=== PATIENT | female | born 1930 | race Caucasian/White ===

== ENCOUNTER → 2016-07-10 | Outpatient (CLI) | payer MEDICARE ==
[~2016-07-10] MED LIST: AMBIEN5 MG PO; ASPIRIN E.C.325 MG PO; ATOXIMETIN-B1 CAP PO; CORDROL20 MG PO; FLEXERIL10 MG PO; PERCOCET 325 MG1 TA2 PO; PRAVACHOL40 MG PO; PREDNISONE5 MG PO; QUINAPRIL5 MG PO; SPIRIVA18 MCG IH; SYNTHROID0.025 MG PO; Ventolin 02.5 MG/3 M INH; XANAX0.25 MG PO
== END | disposition home or self-care (01) ==
LOC: LAB 14:51
PROVIDERS: Internal Medicine Gastroenterology
DX: R19.7 Diarrhea, unspecified (principal); G89.29 Other chronic pain